=== PATIENT | female | born 1985 | race Caucasian/White ===

== ENCOUNTER 2019-12-26 10:15 | Emergency (ER) | payer OTHER ==
[~2019-12-26] VITALS: Ht 154.9 cm; Wt 63.5 kg
--- NOTE | 2019-12-26 10:24 | NUR ---
PT IS IN ROOM #1B DR CHAPIN EVALUATED THE PT.
--- NOTE | 2019-12-26 10:39 | NUR ---
PT WAS D/C'd TO HOME. D/C INSTRUCTIONS GIVEN TO THE PT.
[2019-12-26 10:55] VITALS: BP 132/89
== END 2019-12-26 10:56 | disposition home or self-care (01) ==
LOC: ER 10:15
DX: J20.9 Acute bronchitis, unspecified (principal)
CPT/HCPCS: A4663